=== PATIENT | male | born 1965 | race Caucasian/White ===

== ENCOUNTER 2021-09-24 20:04 | Inpatient (IN) | payer MEDICAID ==
[~2021-09-24] VITALS: Ht 167.6 cm; Wt 76.2 kg
[2021-09-24] MEDS ORDERED: LEVETIRACETAM 1000MG PREMIX 100 ML IV ONE (20:45)
[2021-09-24] MEDS ORDERED: LORAZEPAM 2MG/ML CPJ IV ONE ×2 (21:15→21:30)
[2021-09-24 21:29] LABS: HEMATOCRIT. 29.8 % (42.0-52.0); HEMOGLOBIN. 9.6 g/dL (14.0-18.0); MEAN CORPUSCULAR HEMOGLOBIN 25.5 pg (28.0-32.0); MEAN CORPUSCULAR VOLUME 78.8 fL (80.0-94.0); MEAN PLATELET VOLUME 7.6 fl (7.4-10.4); PLATELET 95 x1000/uL (130-400); RED BLOOD CELL COUNT 3.78 mill/uL (4.7-6.1); RED CELL DISTRIBUTION WIDTH 17.4 % (11.6-14.6)
[2021-09-24 21:34] LABS: CHLORIDE 94 mEq/L (98-107)
[2021-09-24 21:38] LABS: ETHANOL BLOOD < 10 mg/dL
[2021-09-24 22:00] LABS: PLATELET ESTIMATE DECREASED
[2021-09-25] MEDS ORDERED: LORAZEPAM 2MG/ML CPJ IV ONE (02:30)
[2021-09-25] MEDS ORDERED: SODIUM CHLORIDE 0.9% 1,000 ML IV ONE (02:30)
[2021-09-25] MEDS ORDERED: FOLIC ACID 1 MG, THIAMINE HCL 100 MG, MVI, ADULT NO.1 10 ML in DEXTROSE 5% WATER 1,000 ML IV ONE ×4 (02:30)
[2021-09-25] MEDS ORDERED: LORAZEPAM 2MG/ML CPJ IV NR (02:30)
[2021-09-25] MEDS ORDERED: IPRATROPIUM/ALBUTEROL 0.5-3(2.5)MG/3ML NEB HHN PRN (06:45)
[2021-09-25] MEDS ORDERED: LORAZEPAM 2MG/ML CPJ IV PRN (06:45)
[2021-09-25] MEDS ORDERED: GUAIFENESIN 200MG/10ML SUGAR FREE UDC PO PRN (06:45)
[2021-09-25] MEDS ORDERED: ONDANSETRON HCL 4MG/2ML INJ IV PRN (06:45)
[2021-09-25] MEDS ORDERED: HYDRALAZINE 20MG/ML VIAL IV PRN (06:45)
[2021-09-25] MEDS ORDERED: HYDROCODONE/ACETAMINOPHEN 5/325MG TABLET PO PRN (06:45)
[2021-09-25] MEDS ORDERED: CLONIDINE 0.1MG TABLET PO PRN (06:45)
[2021-09-25] MEDS ORDERED: MORPHINE SULFATE 2 MG/ML CPJ (NOT FOR IM USE) IV PRN (06:45)
[2021-09-25] MEDS ORDERED: MAGNESIUM/ALUMINUM HYDROXIDE/SIMETHICONE 30ML UDC PO PRN (08:00)
[2021-09-25] MEDS ORDERED: DOCUSATE SODIUM 100MG CAPSULE PO PRN (09:00)
[2021-09-25 10:00] VITALS: BP 139/70
[2021-09-25 10:30] VITALS: BP 139/70
[2021-09-25] MEDS ORDERED: NALOXONE HCL 0.4MG/ML VIAL IV PRN (10:30)
[2021-09-25] MEDS: LEVETIRACETAM 500MG TABLET PO SCH ×2 (11:31→21:38)
[2021-09-25 12:00] VITALS: BP 138/67
[2021-09-25] MEDS ORDERED: PERMETHRIN 5% CREAM 60GM TOP NR (13:00)
[2021-09-25] MEDS: CHLORDIAZEPOXIDE 25MG CAPSULE PO SCH ×2 (13:10→21:38)
[2021-09-25] MEDS: SODIUM CHLORIDE 0.9% INJ 3ML FLUSH IVF SCH ×2 (13:11→21:38)
[2021-09-25] MEDS: DIPHENHYDRAMINE 50MG/ML VIAL IV PRN (14:18)
[2021-09-25 16:00] VITALS: BP 128/85
[2021-09-25] MEDS: ACETAMINOPHEN 325MG TABLET PO PRN (18:26)
[2021-09-25] MEDS: ENOXAPARIN 40MG/0.4ML SYR SUBCUT SCH (18:27)
[2021-09-25 20:00] VITALS: BP 122/63
[2021-09-26] VITALS: BP 119/60
[2021-09-26 03:36] VITALS: BP 129/69
[2021-09-26] MEDS: CHLORDIAZEPOXIDE 25MG CAPSULE PO SCH ×3 (05:57→21:54)
[2021-09-26] MEDS: SODIUM CHLORIDE 0.9% INJ 3ML FLUSH IVF SCH ×3 (05:58→21:55)
[2021-09-26 06:50] LABS: HEMATOCRIT. 32.5 % (42.0-52.0); HEMOGLOBIN. 10.3 g/dL (14.0-18.0); MEAN CORPUSCULAR VOLUME 78.8 fL (80.0-94.0); MEAN PLATELET VOLUME 8.3 fl (7.4-10.4); PLATELET 86 x1000/uL (130-400); RED BLOOD CELL COUNT 4.12 mill/uL (4.7-6.1); RED CELL DISTRIBUTION WIDTH 17.5 % (11.6-14.6)
[2021-09-26 07:21] LABS: CHLORIDE 103 mEq/L (98-107)
[2021-09-26 07:39] VITALS: BP 108/66
[2021-09-26] MEDS ORDERED: POTASSIUM CHLORIDE INJ 40 MEQ in DEXT 5% WATER 250 ML IV ONE (08:00)
[2021-09-26] MEDS ORDERED: POTASSIUM CHLORIDE 20MEQ TABLET SR PO SCH (08:00)
[2021-09-26] MEDS: ENOXAPARIN 40MG/0.4ML SYR SUBCUT SCH (08:06)
[2021-09-26] MEDS: LEVETIRACETAM 500MG TABLET PO SCH ×2 (08:06→21:55)
[2021-09-26] MEDS: KCL 20MEQ/100ML X 2 FOR TOTAL KCL 40MEQ/200ML IV SCH ×2 (09:24→11:27)
[2021-09-26 11:29] VITALS: BP 123/80
[2021-09-26 13:05] LABS: PLATELET ESTIMATE DECREASED
[2021-09-26 13:51] LABS: HEPATITIS B SURFACE ANTIGEN NEGATIVE
[2021-09-26 16:00] VITALS: BP 106/73
[2021-09-26 20:00] VITALS: BP 117/72
[2021-09-27] VITALS: BP 110/70
[2021-09-27 04:00] VITALS: BP 120/74
[2021-09-27] MEDS: CHLORDIAZEPOXIDE 25MG CAPSULE PO SCH ×3 (06:16→22:04)
[2021-09-27] MEDS: SODIUM CHLORIDE 0.9% INJ 3ML FLUSH IVF SCH ×3 (06:17→22:05)
[2021-09-27 08:00] VITALS: BP 120/63
[2021-09-27 08:33] LABS: HEMATOCRIT. 31.9 % (42.0-52.0); HEMOGLOBIN. 10.2 g/dL (14.0-18.0); MEAN CORPUSCULAR HEMOGLOBIN 25.2 pg (28.0-32.0); MEAN CORPUSCULAR VOLUME 79.2 fL (80.0-94.0); MEAN PLATELET VOLUME 8.3 fl (7.4-10.4); PLATELET 117 x1000/uL (130-400); RED BLOOD CELL COUNT 4.03 mill/uL (4.7-6.1); RED CELL DISTRIBUTION WIDTH 17.8 % (11.6-14.6)
[2021-09-27] MEDS: LEVETIRACETAM 500MG TABLET PO SCH ×2 (08:44→22:04)
[2021-09-27] MEDS: ENOXAPARIN 40MG/0.4ML SYR SUBCUT SCH (08:45)
[2021-09-27 09:02] LABS: CHLORIDE 106 mEq/L (98-107)
[2021-09-27 12:00] VITALS: BP 102/58
[2021-09-27 16:00] VITALS: BP 107/67
[2021-09-27 20:00] VITALS: BP 112/65
[2021-09-28] VITALS: BP 127/74
[2021-09-28 04:05] VITALS: BP 145/84
[2021-09-28 05:41] LABS: HEMATOCRIT. 31.9 % (42.0-52.0); HEMOGLOBIN. 10.2 g/dL (14.0-18.0); MEAN CORPUSCULAR HEMOGLOBIN 25.4 pg (28.0-32.0); MEAN CORPUSCULAR VOLUME 79.5 fL (80.0-94.0); MEAN PLATELET VOLUME 8.7 fl (7.4-10.4); PLATELET 140 x1000/uL (130-400); RED BLOOD CELL COUNT 4.01 mill/uL (4.7-6.1)
[2021-09-28] MEDS: CHLORDIAZEPOXIDE 25MG CAPSULE PO SCH ×3 (06:12→21:18)
[2021-09-28] MEDS: SODIUM CHLORIDE 0.9% INJ 3ML FLUSH IVF SCH ×3 (06:12→21:25)
[2021-09-28 07:38] LABS: CHLORIDE 107 mEq/L (98-107)
[2021-09-28 08:00] VITALS: BP 123/85
[2021-09-28 08:31] LABS: PLATELET ESTIMATE SLIGHTLY DECREASED
[2021-09-28] MEDS: ENOXAPARIN 40MG/0.4ML SYR SUBCUT SCH (09:00)
[2021-09-28] MEDS: LEVETIRACETAM 500MG TABLET PO SCH ×2 (09:00→21:17)
[2021-09-28 12:28] VITALS: BP 109/67
[2021-09-28 15:33] VITALS: BP 115/76
[2021-09-28 20:00] VITALS: BP 117/75
[2021-09-28 20:35] LABS: PLATELET ESTIMATE NORMAL
[2021-09-29] VITALS: BP 120/75
[2021-09-29 04:00] VITALS: BP 110/70
[2021-09-29 08:00] VITALS: BP 113/73
[2021-09-29] MEDS: ENOXAPARIN 40MG/0.4ML SYR SUBCUT SCH (08:56)
[2021-09-29] MEDS: LEVETIRACETAM 500MG TABLET PO SCH ×2 (08:56→21:29)
[2021-09-29 12:00] VITALS: BP 118/56
[2021-09-29] MEDS: SODIUM CHLORIDE 0.9% INJ 3ML FLUSH IVF SCH ×2 (13:30→21:30)
[2021-09-29] MEDS: CHLORDIAZEPOXIDE 25MG CAPSULE PO SCH ×2 (13:30→21:30)
[2021-09-29 16:00] VITALS: BP 98/57
[2021-09-29 20:00] VITALS: BP 115/70
[2021-09-30] VITALS: BP 118/70
[2021-09-30] MEDS: DIPHENHYDRAMINE 50MG/ML VIAL IV PRN (00:57)
[2021-09-30 04:00] VITALS: BP 120/72
[2021-09-30 08:00] VITALS: BP 102/63
[2021-09-30] MEDS: LEVETIRACETAM 500MG TABLET PO SCH ×2 (09:13→20:44)
[2021-09-30] MEDS: ENOXAPARIN 40MG/0.4ML SYR SUBCUT SCH (09:13)
[2021-09-30 12:00] VITALS: BP 108/72
[2021-09-30] MEDS: SODIUM CHLORIDE 0.9% INJ 3ML FLUSH IVF SCH ×2 (14:05→21:21)
[2021-09-30] MEDS: CHLORDIAZEPOXIDE 25MG CAPSULE PO SCH (14:05)
[2021-09-30 16:00] VITALS: BP 103/72
[2021-09-30 20:00] VITALS: BP 114/75
[2021-09-30] MEDS: ACETAMINOPHEN 325MG TABLET PO PRN (21:54)
[2021-10-01] VITALS: BP 110/83
[2021-10-01 04:00] VITALS: BP 93/56
[2021-10-01] MEDS: SODIUM CHLORIDE 0.9% INJ 3ML FLUSH IVF SCH ×2 (05:04→13:53)
[2021-10-01] MEDS: ENOXAPARIN 40MG/0.4ML SYR SUBCUT SCH (08:47)
[2021-10-01] MEDS: LEVETIRACETAM 500MG TABLET PO SCH (08:47)
[2021-10-01 16:30] VITALS: BP 111/73
[2021-10-01 20:00] VITALS: BP 123/79
== END 2021-10-01 20:20 | disposition home or self-care (01) | DRG 53 ==
LOC: ER 20:04 → MICUSO 09-25 03:40 → 6WST 09-25 10:15
PROVIDERS: ADMIT Internal Medicine; ATTEND Internal Medicine
DX: G40.919 Epilepsy, unspecified, intractable, without status epilepticus (principal); D69.6 Thrombocytopenia, unspecified; E87.1 Hypo-osmolality and hyponatremia; G93.89 Other specified disorders of brain; B86 Scabies; D64.9 Anemia, unspecified; F10.10 Alcohol abuse, uncomplicated; F17.200 Nicotine dependence, unspecified, uncomplicated; Y90.9 Presence of alcohol in blood, level not specified; R74.01 Elevation of levels of liver transaminase levels; Z59.00 Homelessness unspecified
CPT/HCPCS: 36415; 71045; 76700; 80048; 80053; 80320; 84443; 85025; 86705; 86709; 86803; 87340; 93005; 99291; J1200; J1650; J1953; J2060; J3411; J3480; J3490; J7030; J7070; G0480